=== PATIENT | male | born 1990 | race Caucasian/White ===

== ENCOUNTER 2017-01-08 12:47 | Inpatient (IN) | payer BC, OTHER ==
[~2017-01-08] VITALS: Ht 188 cm; Wt 64.9 kg
[~2017-01-08 12:47] MED LIST: CLON0.1T14 PO; Gabapentin PO; METH-33 PO; TRAZ-144 PO
[2017-01-08 14:05] VITALS: BP 113/61
--- NOTE | 2017-01-08 14:05 | NUR ---
Pre-admission Note: Seen client in intake at this time. He is alert and verbally responsive. Oriented x 4. Appears anxious, with pressured speech. Noted with facial sweating and flushing, gross tremors, restless legs, runny nose and mild generalized pain. Noted with presence of left arm sling. Patient reports that this is due to a should dislocation that happened yesterday. Able to verbalize good understanding of the admission process. Patient noted with disorganized thoughts, jumping from one subject to another. Also noted with auditory hallucinations, answering questions that were not asked. Patient states, "Where can i get a bath tub?" Redirection and re-orientation provided with help. Patient states that he is here to detox from Oxycontin and Xanax. He reports allergies to shellfish. Follows a regular diet at home. 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 VS: Temp 98.1, Pulse 71, RR 20, BP 113/61, PL 2/10. COWS 12/CIWA 16. Dr. Plunkett in to see the patient in the intake office and will enter in admission orders.
--- NOTE | 2017-01-08 14:20 | NUR ---
Admission Note: Patient is a 26 year old male admitted to safely detox from opiates and benzodiazepines under the care of Dr. Seth Plunkett. He is alert and oriented x 4. Noted with auditory hallucinations. Denies S/I or H/I noted. Verbally responsive. Answers questions inappropriately at times. Respirations even and unlabored. No SOB noted. Skin warm and moist to touch. Appears diaphoretic with gross tremors and piloerection noted. Body search done. No contraband was found. Skin check done. No skin breakdown noted. No rashes, no lesions noted. Abdomen soft and non-distended with (+) BS in all 4 quadrants. He reports that his LBM was 1 week ago. Voids independently. Ambulatory ad enoch with steady gait. He reports allergies to shellfish. Has past medical hx of withdrawal-induced seizures 1 year and a half ago. He denies having a PCP at this time. Did not bring in any home medications. Patient states that both his uncles from both sides of his family are heavy drinkers and drug users. Substance Use: 1. Oxycodone - since 16 years old. Snorts 300 to 500 mg daily x 8 months. Last use was 30 hours prior to admission. 2. Xanax - since 16 years old. Snorts 10 to 30 mg daily x 8 months. Last use was was 30 hours prior to admission. Treatment History: 1. Dec 2015 x 21 days - patient unable to recall the name of the rehab 2. [facility] [place] [facility] [place] - 2016 x [facility] days 3. [facility] [place], [place] - x 14 days in 2015 4. [facility] - Apr 2016 x 7 days 5. Apr 2016 x 30 days - patient unable to recall the name of the rehab place at this time Dr. Plunkett aware of patient's arrival in the unit and patient's current level of consciousness. entered in orders for neurochecks q 1 hour and VS q 1 hour. Orders noted and carried out. Placed patient on 1:1 at this time. Bilateral siderails up and padded for fall and seizure
--- NOTE | 2017-01-08 14:39 | NUR ---
Taper intiated/PRN Clonidine 0.1mg PO given: COWS 12/CIWA 16. Modified 5-day Valium and 5-day Subutex taper initiated. Patient kept on 1:1. Safety precautions in place. Patient was administered Clonidine 0.1mg PO for chills, hot flashes, anxiety, agitation. Will monitor for effectiveness.
[2017-01-08 15:00] VITALS: BP 121/87
[2017-01-08 15:37] LABS: *AMPHETAMINE, URINE NEGATIVE (NEGATIVE); *BARBITURATE, URINE NEGATIVE (NEGATIVE); *CANNABINOID, URINE POSITIVE (NEGATIVE); *COCCAINE, URINE NEGATIVE (NEGATIVE); *OPIATE, URINE POSITIVE (NEGATIVE); *PHENCYCLIDINE SCREEN,URINE NEGATIVE (NEGATIVE)
--- NOTE | 2017-01-08 15:39 | NUR ---
Re-assessment: Per patient, PRN Clonidine was effective in reducing sweating, chills, hot flashes, agitation and anxiety.
[2017-01-08 16:00] VITALS: BP 108/50
--- NOTE | 2017-01-08 16:00 | NUR ---
IV access obtained: Informed patient of the procedure and reason. Patient verbalized good understanding. Utilized 23 gauge to patient's left forearm x 1 attempt. Patient tolerated procedure well. Noted with good blood return. Tourniquet released and secured. Flushed adequately per unit protocol. IV site patient and intact. IVF of NS at 125cc/hr started. Addendum: 01/08/17 at 1922 by TIFFANIE PETERSEN LVN Use 22 gauge, not 23.
[2017-01-08 17:00] VITALS: BP_SYST 112; BP_SYST 116; BP_DIAS 54; BP_DIAS 55
[2017-01-08 18:00] VITALS: BP 116/55
--- NOTE | 2017-01-08 18:57 | NUR ---
End of Shift Notes: Patient initiated his 5-day Valium and 5-day Subutex taper as ordered. No adverse reactions noted. VS monitored closely q 1 hour and neurochecks done q 1 hour. No significant changes noted. Continues to be on 1:1 due to altered LOC and DTs due to benzodiazepine. Initial COWS 12/CIWA 16, patient presented with mod to severe hallucinations, chills, anxiety, fatigue, sweating, and mild agitation. Last COWS 02/15 at 1600. IV site to left forearm patent and intact. On continuos IVF of NS at 125cc/hr for hydration. Patient is tolerating well. Compliant with care and treatment. Unable to participate in group and activities. All needs met and attended. Will continue to monitor.
--- NOTE | 2017-01-08 18:59 | NUR ---
New Orders: Orders received from Dr. Plunkett for neurocheck and VS check q 1 hour to be discontinued and changed to q 4 hours. Endorsed to incoming nurse.
[2017-01-08 20:00] VITALS: BP 111/67
--- NOTE | 2017-01-08 20:00 | NUR ---
Start of Shift Pt is a 26 year old male admitted for Opiate/Benzo dependence, placed on Modified Valium and Modified Subutex taper. Pt reported using Oxycodone (nasal) 300-500mg/daily and Xanax (nasal) 10 30mg/daily for the past 8 months. PMH: Withdrawal induced seizures and Left should dislocation (presence of a sling). Pt reports allergies to shellfish, regular diet, fall/seizure precautions and full code. Upon assessment, Presents with anxiety, skin is clammy/flushed, reports tingling sensations in bilateral hands, mild lightheadedness, body aches, tremors visible, denies nausea, denies auditory/visual hallucinations, respirations even/unlabored, denies SOB/chest pain, skin intact. IV to Left forearm 23 gauge, site is intact, no swelling/redness noted. IV NS @ 125cc/hr running for hydration. Pt is on 1:1 due to safety, sitter at bedside. Neurological assessment ordered every 4 hours. Medications due, safety measures in place, call light within reach, side rails up x2, bed locked and in low position. Will continue to monitor.
[2017-01-08 22:57] LABS: BASOPHILS # (AUTO) 0.1 K/uL (0.0-8.0); BASOPHILS % (AUTO) 0.5 % (0.0-2.0); EOSINOPHILS # (AUTO) 0.1 K/uL (0.0-0.7); EOSINOPHILS % (AUTO) 0.8 % (0.0-7.0); HEMATOCRIT 37.5 % (40-50); HEMOGLOBIN 12.6 G/DL (14.0-18.0); LYMPHOCYTES # (AUTO) 2.7 K/UL (0.8-4.8); MEAN CORPUSCULAR HEMOGLOBIN 28.3 UUG (27.0-31.0); MEAN CORPUSCULAR HGB CONC 34 g/dL (32.0-37.0); MEAN CORPUSCULAR VOLUME 84.2 FL (82.0-92.0); MONOCYTES # (AUTO) 0.9 K/UL (0.1-1.30); MONOCYTES % (AUTO) 7.6 % (0.0-11.0); NEUTROPHILS % (AUTO) 68.1 % (38.5-71.5); PLATELET COUNT (AUTO) 275 K/UL (150-450); RED BLOOD CELL COUNT(AUTO) 4.46 MIL/UL (4.7-6.1); WHITE BLOOD COUNT (AUTO) 11.8 K/UL (4.0-11.2)
[2017-01-08 23:16] LABS: ALANINE AMINOTRANSFERASE 18 U/L (16-63); ALKALINE PHOSPHATASE 70 U/L (50-136); ASPARTATE AMINOTRANSFERASE 23 U/L (15-37); BILIRUBIN,TOTAL 0.6 mg/dL (0.2-1.0); CARBON DIOXIDE 26 mmol/L (21-32); CHLORIDE 104 mmol/L (98-107); CREATININE 0.9 mg/dL (0.6-1.3); GLUCOSE 91 mg/dL (74-106); POTASSIUM 3.3 mmol/L (3.5-5.1); TOTAL PROTEIN, SERUM 7.7 g/dL (6.4-8.2); UREA NITROGEN, BLOOD 21 mg/dL (7-18)
--- NOTE | 2017-01-08 23:18 | NUR ---
Valium Administration CIWA 11, pt presents with anxiety, easily distracted with rapid speech, skin flushed, reports tingling sensations, tremors visible, clammy skin. Valium 20mg x1 administered. Pt refused ordered Clonidine 0.1gm x1. Education provided, risks/benefits explained x3. Safety measures in place, sitter at bedside. Will continue to monitor.
--- NOTE | 2017-01-08 23:28 | NUR ---
IVF of NS running at 125cc/hr new bag hung. IV Site to Left forearm, intact, no s/s of swelling/redness noted. Safety measures in place, sitter at bedside. Will continue to monitor.
[2017-01-08 23:29] LABS: ETHANOL < 3 MG/DL (0-0)
[2017-01-09 00:06] LABS: THYROID STIMULATING HORMONE 0.284 mIU/mL (0.358-3.740)
[2017-01-09 00:18] VITALS: BP 100/48
--- NOTE | 2017-01-09 00:18 | NUR ---
Valium Reassessment CIWA 11 decreased to CIWA 8. Safety measures in place, sitter at bedside. Will continue to monitor.
--- NOTE | 2017-01-09 00:49 | NUR ---
Potassium 3.3 supplemented with K DUR 40 MEQ. Safety measures in place, sitter at bedside. Will continue to monitor.
[2017-01-09 04:00] VITALS: BP 107/60
--- NOTE | 2017-01-09 04:00 | NUR ---
Vital Signs BP 107/60, pulse 53, resp 16, SpO2 98% room air, temp 98, no pain. CIWA/COWS and neuro checks deferred due to pt sleeping, to assess while pt is awake as ordered. Pt sleeping, sitter at bedside. Safety measures in place, will continue to monitor.
--- NOTE | 2017-01-09 07:00 | NUR ---
End of Shift Pt is a 26 year old male admitted for Opiate/Benzo dependence, placed on Modified Valium and Modified Subutex taper. Pt reported using Oxycodone (nasal) 300-500mg/daily and Xanax (nasal) 10 30mg/daily for the past 8 months. PMH: Withdrawal induced seizures and Left should dislocation (presence of a sling). Pt reports allergies to shellfish, regular diet, fall/seizure precautions and full code. During shift, Pt presented with anxiety, skin was clammy/flushed, reported tingling sensations in bilateral hands, mild lightheadedness, body aches, tremors visible, denied nausea, denied auditory/visual hallucinations scheduled taper medications administered, along with Valium 20mg x1 for CIWA 11. Upon reassessment, CIWA 8 and COWS 8. Pt refused ordered Clonidine 0.1gm x1. Education provided, risks/benefits explained x3. Potassium 3.3 supplemented with K DUR 40 MEQ. IV to Left forearm 23 gauge, site is intact, no swelling/redness noted. IV NS @ 125cc/hr running for hydration, new bag hung at 2328. Pt is on 1:1 due to safety, sitter at bedside. Neurological assessment ordered every 4 hours. Patient slept for 3 hours, Intake 2600mL, void x4, stool x0. Safety measures in place, call light within reach, side rails up x2, bed locked and in low position. Endorsed to day shift nurse.
--- NOTE | 2017-01-09 07:19 | NUR ---
Start Of Shift Report received. Pt is a 26 year old male admitted for Opiate/Benzo dependence. Pt is full code regular diet on fall and seizure precautions pt is allergic to Shellfish. Pt placed on Modified Valium and Modified Subutex taper. PMH: Withdrawal induced seizures and Left should dislocation. Pt has an IV to Left forearm 23 gauge, site is intact, no swelling/redness noted. IV NS @ 125cc/hr running for hydration. Pt is on 1:1 due to safety, sitter at bedside. Neurological assessment ordered every 4 hours. Encouraged pt to drink fluids to facilitate with detox process. Safety measures in place, call light within reach, side rails up x2, bed locked and in low position. Endorsed to day shift nurse.
[2017-01-09 08:00] VITALS: BP 113/64
[2017-01-09 12:00] VITALS: BP 121/69
[2017-01-09 16:00] VITALS: BP 125/72
--- NOTE | 2017-01-09 19:31 | NUR ---
End Of Shift Pt is a 26 year old male admitted for Opiate/Benzo dependence. Pt is full code regular diet on fall and seizure precautions pt is allergic to Shellfish. Pt placed on Modified Valium and Modified Subutex taper. PMH: Withdrawal induced seizures and Left should dislocation. VS monitored closely q 4 hours. Withdrawal symptoms were closely monitored. Patient encouraged adequate PO fluid intake as tolerated. Patient presented with tremors and anxiety during the day. Last COWS 5 CIWA 5. Pt ate all of his meals. No PRN medications given during the day. Patient encouraged to attend group therapies/sessions to learn new coping skills to recent relapse, patient denies SI/HI. Participated in group and therapy sessions. All needs met and attended.
[2017-01-09 20:00] VITALS: BP 118/77
--- NOTE | 2017-01-09 20:00 | NUR ---
Start of Shift Pt is a 26 year old male admitted for Opiate/Benzo dependence, placed on Modified Valium and Modified Subutex taper. Pt reported using Oxycodone (nasal) 300-500mg/daily and Xanax (nasal) 10 30mg/daily for the past 8 months. PMH: Withdrawal induced seizures and Left should dislocation (presence of a sling). Pt reports allergies to shellfish, regular diet, fall/seizure precautions and full code. Upon assessment, presents with anxiety, skin is flushed, reports body aches, tremors felt upon touch, denies nausea, denies auditory/visual hallucinations, respirations even/unlabored, denies SOB/chest pain, skin intact. IV to Left forearm 23 gauge, site is intact, no swelling/redness noted. Medications due, safety measures in place, call light within reach, side rails up x2, bed locked and in low position. Will continue to monitor.
[2017-01-10] VITALS: BP 122/78
--- NOTE | 2017-01-10 04:00 | NUR ---
Pt refused to wake for 0400 Vital Sign Assessment CIWA/COWS and neuro checks deferred due to pt sleeping, to assess while pt is awake as ordered. Pt sleeping, sitter at bedside. Safety measures in place, will continue to monitor.
[2017-01-10 06:05] LABS: HEPATITIS B SURFACE AG Negative (Negative)
--- NOTE | 2017-01-10 07:00 | NUR ---
End of Shift Pt is a 26 year old male admitted for Opiate/Benzo dependence, placed on Modified Valium and Modified Subutex taper. Pt reported using Oxycodone (nasal) 300-500mg/daily and Xanax (nasal) 10 30mg/daily for the past 8 months. PMH: Withdrawal induced seizures and Left should dislocation (presence of a sling). Pt reports allergies to shellfish, regular diet, fall/seizure precautions and full code. During shift, pt presented with anxiety, skin is flushed, reports body aches, tremors felt upon touch, denies nausea, denies auditory/visual hallucinations scheduled taper medications administered, CIWA 6 and COWS 6. No PRN medications administered during shift. IVF of NS at 125cc/hr new bag hung at 0005 bag completed running, IV site d/c. Pt slept for 2 hours, intake of 1000 ml PO, voids x2 and stool x0. Safety measures in place, call light within reach, side rails up x2, bed locked and in low position. Endorsed to day shift nurse.
[2017-01-10 07:17] LABS: CREATININE 0.8 mg/dL (0.6-1.3); MAGNESIUM 1.9 mg/dL (1.8-2.4); POTASSIUM 4.2 mmol/L (3.5-5.1)
[2017-01-10 07:42] LABS: BASOPHILS # (AUTO) 0.1 K/uL (0.0-8.0); BASOPHILS % (AUTO) 0.7 % (0.0-2.0); EOSINOPHILS # (AUTO) 0.3 K/uL (0.0-0.7); EOSINOPHILS % (AUTO) 2.8 % (0.0-7.0); HEMATOCRIT 34.7 % (40-50); HEMOGLOBIN 11.6 G/DL (14.0-18.0); LYMPHOCYTES # (AUTO) 3.7 K/UL (0.8-4.8); LYMPHOCYTES % (AUTO) 33.7 % (20.5-51.5); MEAN CORPUSCULAR HEMOGLOBIN 28.6 UUG (27.0-31.0); MEAN CORPUSCULAR HGB CONC 33 g/dL (32.0-37.0); MEAN CORPUSCULAR VOLUME 85.9 FL (82.0-92.0); MONOCYTES % (AUTO) 8.9 % (0.0-11.0); NEUTROPHILS % (AUTO) 53.9 % (38.5-71.5); PLATELET COUNT (AUTO) 239 K/UL (150-450); RED BLOOD CELL COUNT(AUTO) 4.04 MIL/UL (4.7-6.1); WHITE BLOOD COUNT (AUTO) 11.1 K/UL (4.0-11.2)
[2017-01-10 08:00] VITALS: BP 103/60
--- NOTE | 2017-01-10 08:00 | NUR ---
START OF SHIFT: RECEIVED PT A/O X 4. HE PRESENTS WITH ANXIOUS MOOD AND IS FIDGETY. HE REPORTS CHILLS,BODY ACHES,ANXIETY,STUFFY NOSE AND STOMACH CRAMPS. COWS 10 CIWA 5. MODIFIED VALIUM AND SUBUTEX TAPER IN PROGRESS TO MANAGE S/S OF W/D. HE STATES THE MEDS ARE EFFECTIVE. ENCOURAGED INCREASED FLUIDS AND PROPER NUTRITION TO PROMOTE WELLNESS. WILL CONTINUE TO MONITOR AND PROVIDE SAFE AND SUPPORTIVE ENVIRONMENT.
[2017-01-10 09:03] LABS: THYROID STIMULATING HORMONE 2.177 mIU/mL (0.358-3.740)
[2017-01-10 12:00] VITALS: BP 107/64
[2017-01-10 16:00] VITALS: BP 108/60
--- NOTE | 2017-01-10 17:09 | NUR ---
Client was prompted by therapist to attend group therapy sessions. Client expressed that he would attend group if he was feeling up to going.
[2017-01-10 18:08] VITALS: BP 108/60
--- NOTE | 2017-01-10 18:55 | NUR ---
END OF SHIFT: PT CONTINUES ON MODIFIED VALIUM/SUBUTEX TAPER. LAST COWS 10 CIWA 5. HE C/O SWEATS,BODY ACHES ANXIETY AND IRRITABILITY.HE STATES THE DETOX MEDS ARE EFFECTIVE. NO PRNS GIVEN THIS SHIFT. HE INTERACTED WITH PEERS AND ATTENDED GROUPS. WILL PASS SHIFT REPORT TO ONCOMING NIGHT NURSE.
--- NOTE | 2017-01-10 19:30 | NUR ---
START OF SHIFT Pt is a 26 y/o male admitted on 01/08/17 for benzo and opiate dependence. Pt was dependent on Oxycodone 300-500 mg daily and Xanax 10-30 mg daily for the past 8 months. Pt is full code, regular diet, allergic to shellfish, and on fall/seizure precautions. Pt reports seizure hx 1.5 years ago r/t withdrawal. Pt reports PMH of shoulder dislocation years ago with current/recent exacerbation and is currently wearing a sling. Pt is on a 5 day Valium and Subutex taper started on 01/09/17, tolerating well. Upon assessment pt presents with cold sweats, restlessness, chills, flushing, body aches, and mild to moderate anxiety. Denies N/V/D. Respirations 18, even and unlabored. Denies chest pain or SOB. Medications due. Safety measures in place. Call light within reach. Will continue to monitor.
[2017-01-10 20:00] VITALS: BP 101/59
--- NOTE | 2017-01-10 21:00 | NUR ---
SCHEDULED CLONIDINE 0.1 MG HELD BP 101/59, to be held per order if BP < 100/70. Safety measures in place. Call light within reach. Will continue to monitor.
[2017-01-11] VITALS: BP 118/69
--- NOTE | 2017-01-11 00:27 | NUR ---
PRN TRAZODONE AND ROBAXIN ADMINISTRATION Pt reports body aches, especially in legs. Pt is restless and awake, requesting sleep aid. Respirations 18, even and unlabored. Safety measures in place. Call light within reach. Will continue to monitor.
--- NOTE | 2017-01-11 01:27 | NUR ---
PRN TRAZODONE AND ROBAXIN REASSESSMENT Pt is laying in bed with eyes closed. Respirations 18, even and unlabored. Safety measures in place. Call light within reach. Will continue to monitor.
[2017-01-11 04:00] VITALS: BP 86/43
--- NOTE | 2017-01-11 04:00 | NUR ---
COW/CIWA DEFERRED Pt is laying in bed with eyes closed, COW/CIWA to be assessed when pt is awake per orders. Respirations 16, even and unlabored. Safety measures in place. Call light within reach. Will continue to monitor.
--- NOTE | 2017-01-11 07:21 | NUR ---
END OF SHIFT Pt is a 44 y/o female admitted on 01/10/17 for benzo, morphine, amphetamine dependence. Pt was dependent on Xanax, morphine, MJ, and Adderall. Pt is full code, regular diet, NKA, and on fall/seizure precautions. Pt reports hx of seizure r/t withdrawal. Pt reports PMH of HTN, chronic back pain, 3 surgeries, anxiety, and depression. Pt is on a 5 day Ativan and Subutex taper started on 01/10/17. Pt has a bruise on left upper arm, present prior to admission. Pt presented with moderate to severe body aches, nausea, anxiety, sweats, photosensitivity, and headache. Pt also complained of pain in legs, back, arms, neck, shoulders. Denied V/D. Scheduled medications and PRNs Zofran, Benadryl, and Robaxin administered, effective in S/S of withdrawal AEB as verbalized by pt and pt slept throughout night. Last COW 5, CIWA 6. Pt slept 7 hours. intake 855 ml, void x 2, stool x 0. Last vitals: BP 126/77, P 64, R 16, 02 98%, T 98.7, PA 8/10. Safety measures in place. Call light within reach. Pts needs have been met. Endorsed to day shift nurse.
[2017-01-11 08:00] VITALS: BP 99/60
--- NOTE | 2017-01-11 08:15 | NUR ---
START OF SHIFT: RECEIVED PT A/O X 4. HE PRESENTS WITH ANXIOUS MOOD AND HE IS RESTLESS AND FIDGETY. HE REPORTS CHILLS,BODY ACHES, COWS 8 CIWA 4. MODIFIED VALIUM AND SUBUTEX TAPER IN PROGRESS TO MANAGE S/S OF W/D. HE STATES THE MEDS ARE EFFECTIVE. ENCOURAGED INCREASED FLUIDS AND PROPER NUTRITION TO PROMOTE WELLNESS. WILL CONTINUE TO MONITOR AND PROVIDE SAFE AND SUPPORTIVE ENVIRONMENT.
[2017-01-11 12:00] VITALS: BP 112/64
[2017-01-11 16:00] VITALS: BP 103/63
--- NOTE | 2017-01-11 19:08 | NUR ---
END OF SHIFT: PT CONTINUES ON MODIFIED VALIUM/SUBUTEX TAPER. LAST COWS 6 CIWA 4. HE C/O ,BODY ACHES ANXIETY AND IRRITABILITY.HE STATES THE DETOX MEDS ARE EFFECTIVE. NO PRNS GIVEN THIS SHIFT. HE INTERACTED WITH PEERS AND ATTENDED GROUPS. WILL PASS SHIFT REPORT TO ONCOMING NIGHT NURSE.
[2017-01-11 20:00] VITALS: BP_SYST 108; BP_DIAS 64; BP_DIAS 74
--- NOTE | 2017-01-11 20:00 | NUR ---
START OF SHIFT NOTE RECEIVED REPORT FROM DAY SHIFT NURSE. PATIENT IS A 26 YEAR OLD MALE ADMITTED FOR OPIATE AND BENZO DEPENDENCE. PATIENT IS ON MODIFIED VALIUM AND SUBUTEX TAPER. PATIENT REPORTS PMH OF WITHDRAWAL INDUCED SEIZURES AND LEFT SHOULDER DISLOCATION (PRESENCE OF SLING). PATIENTS DRUG OF CHOICE ARE OXYCODONE AND XANAX. PATIENT DID NOT REQUIRE ANY PRN MEDICATION. PATIENT STARTED ON TRILEPTAL . LAST COWS 6 AND CIWA 4. RECEIVED PATIENT ALERT AND ORIENTED X 4. RESPIRATION EVEN AND UNLABORED. PATIENT REPORTS ANXIETY, SWEATING, NO N/V, DENIES ANY PAIN AT THIS TIME. PATIENT STATES HE ATTENDED GROUPS, APPETITE IS GOOD AND DRINKING FLUIDS WELL. ON FALL/SEIZURE PRECAUTION. SAFETY MEASURES IN PLACE. CALL LIGHT IN REACH. WILL CONTINUE TO MONITOR
--- NOTE | 2017-01-11 22:10 | NUR ---
PRN TRAZADONE ADMINISTRATION PATIENT REQUESTS FOR SLEEP AID. PRN TRAZADONE GIVEN. WILL MONITOR FOR EFFECTIVENESS
--- NOTE | 2017-01-11 23:30 | NUR ---
PRN TRAZADONE RE-ASSESSMENT PATIENT IN BED ASLEEP AT THIS TIME. ESPIRATION EVEN AND UNLABORED. SAFETY MEASURES IN PLACE. CALL LIGHT IN REACH. WILL CONTINUE TO MONITOR.
--- NOTE | 2017-01-12 | NUR ---
COWS/CIWA/VS PATIENT REFUSED VS. COWS/CIWA DEFERRED. RESPIRATION EVEN AND UNLABORED. RR 15. SAFETY MEASURES IN PLACE. CALL LIGHT IN REACH. WILL CONTINUE TO MONITOR.
--- NOTE | 2017-01-12 04:00 | NUR ---
COWS/CIWA/VS PATIENT REFUSED VS. COWS/CIWA DEFERRED. RESPIRATION EVEN AND UNLABORED. RR 15. SAFETY MEASURES IN PLACE. CALL LIGHT IN REACH. WILL CONTINUE TO MONITOR.
--- NOTE | 2017-01-12 07:12 | NUR ---
END OF SHIFT NOTE PATIENT IS A 44 YEAR OLD FEMALE ADMITTED FOR OPIATE/BENZO DEPENDENCE. PATIENT IS ON 5 DAY SUBUTEX AND 5 DAY ATIVAN TAPER, TOLERATED WELL, NO ADVERSE REACTION. PATIENT REPORTED ANXIETY, RESTLESS LEGS, ABDOMINAL CRAMPING, NAUSEA BUT NO EMESIS, C/O HEADACHE AND BACK PAIN, SWEATING ,STUFFY NOSE AND TREMORS BEGINNING OF SHIFT. PATIENT WAS GIVEN PRN ZOFRAN , ROBAXIN, MOM AND TRAZADONE FOR SLEEP. PATIENT COMPLIANT WITH MEDICATION AND TREATMENT PLAN. SAFETY MEASURES IN PLACE. CALL LIGHT IN REACH. WILL CONTINUE TO MONITOR. SLEPT 7 HOURS. FLUID INTAKE 1,355 ML. VOIDED X 2 . NO BM. LAST COWS 2 AND CIWA 2 . ENDORSED TO INCOMING NURSE, PATIENT DID NOT HAVE BM AND MOM INEFFECTIVE.
--- NOTE | 2017-01-12 07:54 | NUR ---
START OF SHIFT: RECEIVED PT A/O X 4. HE PRESENTS WITH ANXIOUS MOOD AND HE IS RESTLESS AND FIDGETY. HE REPORTS CHILLS,BODY ACHES AND SWEATS.COWS 5 CIWA 4. MODIFIED VALIUM AND SUBUTEX TAPER IN PROGRESS TO MANAGE S/S OF W/D. ENCOURAGED INCREASED FLUIDS TO ASSIST IN FACILITATING DETOX PROCESS. ENCOURAGED GROUP ATTENDANCE TO IMPROVE COPING SKILLS. WILL CONTINUE TO MONITOR AND PROVIDE SAFE AND SUPPORTIVE ENVIRONMENT.
[2017-01-12 08:00] VITALS: BP 115/75
[2017-01-12 12:00] VITALS: BP 105/62
--- NOTE | 2017-01-12 13:45 | NUR ---
Activity Group Note: Client was prompted to attend activity. Client refused.
[2017-01-12 16:00] VITALS: BP 104/55
--- NOTE | 2017-01-12 19:05 | NUR ---
END OF SHIFT: PT CONTINUES ON MODIFIED VALIUM/SUBUTEX TAPER. LAST COWS 4 CIWA 2. HE C/O INTERMITTENT ANXIETY AND MILD BODY ACHES. HE STATES THE DETOX MEDS ARE EFFECTIVE. NO PRNS GIVEN THIS SHIFT. HE INTERACTED WITH PEERS AND ATTENDED GROUPS. WILL PASS SHIFT REPORT TO ONCOMING NIGHT NURSE.
[2017-01-12 20:00] VITALS: BP 110/68
--- NOTE | 2017-01-12 20:00 | NUR ---
START OF SHIFT NOTE RECEIVED REPORT FROM DAY SHIFT NURSE. PATIENT IS A 26 YEAR OLD MALE ADMITTED FOR OPIATE/BENZO DEPENDENCE. CONTINUE ON VALIUM AND SUBUTEX TAPER, TOLERATED WELL AND NO ADVERSE REACTION . PATIENT WITH HISTORY OF SEIZURE. ALLERGIC TO SHELLFISH. PATIENT COMPLIANT WITH MEDICATION AND TREATMENT PLAN. LAST COWS 4 AND CIWA 2. PATIENT DID NOT REQUIRE ANY PRN MEDICATION. RECEIVED PATIENT ALERT AND ORIENTED X 4. RESPIRATION EVEN AND UNLABORED . PATIENT REPORTS ANXIETY, RESTLESS, SWEATING, NO N/V, DENIES ANY PAIN. PATIENT ATTENDED GROUPS. APPETITE IS GOOD AND DRINKING FLUIDS WELL. PATIENT CON FALL/SAFETY MEASURES IN PLACE. CALL LIGHT IN REACH. WILL CONTINUE TO MONITOR.
--- NOTE | 2017-01-12 21:00 | NUR ---
CLONIDINE HELD PATIENT'S CLONIDINE HELD DUE TO HR 60. CLONIDINE WITH ORDER TO HOLD IF HR <70 .
[2017-01-13] VITALS: BP 137/92
--- NOTE | 2017-01-13 01:59 | NUR ---
PRN TRZADONE ADMINSITRION PATIENT REPORTS UNABLE TO SLEEP. PRN TRAZADONE. MONITOR EFFECTIVENESS
[2017-01-13 04:00] VITALS: BP 114/68
--- NOTE | 2017-01-13 04:24 | NUR ---
PRN Zofran ODT: Patient complains of nausea, denies episodes of emesis. PRN Zofran ODT 4mg administered as ordered. Primary nurse to reassess in 30 minutes.
--- NOTE | 2017-01-13 04:54 | NUR ---
PRN ZOFRAN RE-ASSESSMENT PATIENT STATES ZOFRAN HELPFUL AND EFFECTIVE. NAUSEA CEASED. WILL CONTINUE TO MONITOR.
--- NOTE | 2017-01-13 07:00 | NUR ---
PRN TRAZADONE RE-ASSESSMENT TRAZADONE INEFFECTIVE. PATIENT DID NOT SLEEP. WILL CONTINUE TO MONITOR
--- NOTE | 2017-01-13 07:25 | NUR ---
Start of shift note SBAR report rcv'd. Pt was admitted for opiate and benzo dependence. Pt has a PMHx of withdrawal induced seizures and a left shoulder dislocation. Pt is allergic to shellfish, is a full code and on a regular diet. Pt is on a custom valium and subutex taper and tolerating well per report. Pt has been up all night pacing the unit per report. Pt continues to ambulate around the unit. Pt has no complaints at this time. Will refer to psych during rounds. All needs addressed at this time. Will continue to monitor pt.
--- NOTE | 2017-01-13 07:28 | NUR ---
END OF SHIFT NOTE PATIENT IS A 26 YEAR OLD MALE ADMITTED FOR OPIATE/BENZO DEPENDENCE. CONTINUE ON VALIUM AND SUBUTEX TAPER, TOLERATED WELL AND NO ADVERSE REACTION . PATIENT WITH HISTORY OF SEIZURE. ALLERGIC TO SHELLFISH. PATIENT COMPLIANT WITH MEDICATION AND TREATMENT PLAN. PATIENT WAS GIVEN TRAZADONE. PATIENT REMAIN ALERT AND ORIENTED X 4. RESPIRATION EVEN AND UNLABORED . PATIENT REPORTED ANXIETY, RESTLESS, SWEATING, NO N/V, DENIES ANY PAIN. PATIENT ATTENDED GROUPS. APPETITE IS GOOD AND DRINKING FLUIDS WELL. PATIENT ON FALL/SAFETY MEASURES IN PLACE. CALL LIGHT IN REACH. WILL CONTINUE TO MONITOR. SLEPT 0 HOURS. FLUID INTAKE 2,000 ML. VOIDED X 5. BM X 1. LAST COWS 2 AND CIWA 2 . CONTINUE TO REDIRECT PATIENT THROUGHOUT SHIFT. TRAZADONE INEFFECTIVE.
[2017-01-13 08:00] VITALS: BP 107/62
[2017-01-13 12:00] VITALS: BP 107/63
--- NOTE | 2017-01-13 12:20 | NUR ---
Late administration Zyprexa administered late per pt request. Pt 0915 of depralf held d/t 1300 scheduled dose being too close to the time that the pt requested meds. Will continue to monitor pt.
--- NOTE | 2017-01-13 14:01 | NUR ---
Therapist encouraged client to attend group this afternoon so he could meet other clients. Client agreed to attend group.
--- NOTE | 2017-01-13 15:00 | NUR ---
Medications held Medications held d/t sleep. Will continue to monitor pt.
--- NOTE | 2017-01-13 16:00 | NUR ---
COWS/CIWA deferred Pt is sleeping, COWS/CIWA deferred. VS also deferred, all prior VS have been WNL. Will continue to monitor pt.
--- NOTE | 2017-01-13 17:22 | NUR ---
Medication held 1700 depakote held d/t pt sleeping. Will continue to monitor pt. Dr Plunkett aware.
--- NOTE | 2017-01-13 19:07 | NUR ---
End of shift note Pt was admitted for opiate and benzo dependence. Pt is allergic to shellfish, is a full code and on a regular diet. Pt has a PMHx of withdrawal induced seizures and a left shoulder dislocation. Pt is on a custom valium and subutex taper and tolerating well per report. Pt started new medication zyprexa and depakote, given educational materials on new medications. Pt has been sleeping soundly since 1430. Pt respirations are even and unlabored. 1500 and 1700 medications held for sleep. Will endorse SBAR to oncoming shift.
--- NOTE | 2017-01-13 19:10 | NUR ---
Start of shift note Received report from day shift nurse. Pt is a 26 yo male, A+Ox4, presenting to [facility] for Opiate/Benzo dependence. Pt has allergies to shellfish, is on Full code status, and on Regular diet. Pt is is on Fall and Seizure precautions. Pt has HX of Left shoulder dislocation, and seizure. Pt is on 5 day Valium and 5 day Subutex tapers, tolerated well. No s/s of distress noted at this time. Respirations even and unlabored. Will continue to monitor.
[2017-01-13 20:02] VITALS: BP 109/62
[2017-01-14 00:19] VITALS: BP 124/71
[2017-01-14 04:29] VITALS: BP 122/68
--- NOTE | 2017-01-14 07:00 | NUR ---
End of shift note Pt is a 26 yo male, A+Ox4, presenting to [facility] for Opiate/Benzo dependence. Pt has allergies to shellfish, is on Full code status, and on Regular diet. Pt is is on Fall and Seizure precautions. Pt has HX of Left shoulder dislocation, and seizure. Pt is on 5 day Valium and 5 day Subutex tapers, tolerated well. Pt slept for a total of 10 HRS. Last COWS: 3 and Last CIWA: 3 @0400. No s/s of distress noted at this time. Respirations even and unlabored. Will endorse to day shift nurse.
--- NOTE | 2017-01-14 07:05 | NUR ---
Start Of Shift Report received. Pt is a 26 year old male admitted for Opiate/Benzo dependence. Pt is full code regular diet on fall and seizure precautions pt is allergic to Shellfish. Pt continues on Modified Valium and Modified Subutex taper, tolerating well. PMH: Withdrawal induced seizures and Left should dislocation. Encouraged pt to drink fluids to facilitate with detox process. Pt did not receive any PRN medications per shift manager nurse last COWS 3 CIWA 3 @0400. Safety measures in place, call light within reach, side rails up x2, bed locked and in low position. Endorsed to day shift nurse.
[2017-01-14 08:00] VITALS: BP 110/60
[2017-01-14 12:00] VITALS: BP 107/69
[2017-01-14] MEDS ORDERED: IBUP-1955 PO (12:04)
[2017-01-14] MEDS ORDERED: GABA-534 PO (12:04)
[2017-01-14] MEDS ORDERED: CLON0.1T14 PO (12:04)
[2017-01-14] MEDS ORDERED: BACL10TA PO (12:04)
[2017-01-14] MEDS ORDERED: TRAZ-144 PO (12:04)
[2017-01-14] MEDS ORDERED: DICY20TA28 PO (12:04)
[2017-01-14] MEDS ORDERED: OLAN5TAB6 PO (12:04)
[2017-01-14] MEDS ORDERED: DIVA250T4 PO (12:04)
[2017-01-14 16:00] VITALS: BP 112/79
--- NOTE | 2017-01-14 19:34 | NUR ---
End Of Shift Report Given. Pt is a 26 year old male admitted for Opiate/Benzo dependence. Pt is full code regular diet on fall and seizure precautions pt is allergic to Shellfish. Pt continues on Modified Valium and Modified Subutex taper, tolerating well. PMH: Withdrawal induced seizures and Left should dislocation. VS monitored closely q 4 hours. Withdrawal symptoms were closely monitored. Initial CIWA and COWS 5. Patient encouraged adequate PO fluid intake as tolerated. Patient presented with tremors and anxiety during the day. Last CIWA and COWS 3. Per patient, Taper medications have been helping him with his withdrawal symptoms. Pt ate all of his meals. Pt received no PRN medications. Patient encouraged to attend group therapies/sessions to learn new coping skills to recent relapse, patient denies SI/HI. Participated in group and therapy sessions. All needs met and attended
--- NOTE | 2017-01-14 19:35 | NUR ---
Start of shift note Received report from day shift nurse. Pt is a 26 yo male, A+Ox4, presenting to [facility] for Opiate/Benzo dependence. Pt has allergies to shellfish, is on Full code status, and on Regular diet. Pt is is on Fall and Seizure precautions. Pt has HX of Left shoulder dislocation, and seizure. Pt is on 5 day Valium and 5 day Subutex tapers, tolerated well. No s/s of distress noted at this time. Respirations even and unlabored. Will continue to monitor.
[2017-01-14 20:14] VITALS: BP 109/68
[2017-01-15 00:14] VITALS: BP 122/68
[2017-01-15 04:51] VITALS: BP 118/73
--- NOTE | 2017-01-15 06:55 | NUR ---
End of shift note Pt is a 26 yo male, A+Ox4, presenting to [facility] for Opiate/Benzo dependence. Pt has allergies to shellfish, is on Full code status, and on Regular diet. Pt is on Fall and Seizure precautions. Pt has HX of Left shoulder dislocation, and seizure. Pt has completed 5 day Valium and 5 day Subutex tapers, tolerated well, and is due for discharge today. Pt slept for a total of 10 HRS. Last COWS: 2 and Last CIWA: 2 @0400. No s/s of distress noted at this time. Respirations even and unlabored. Will endorse to day shift nurse.
--- NOTE | 2017-01-15 07:45 | NUR ---
START OF SHIFT Rcvd endorsement from ongoing nurse, client is in room, he is a/o X 4 , he presents with anxious mood, flat affect, he is fully ambulatory, he is wearing a sling on his left arm, no swelling noted, he reports mild weakness d/t hx of left shoulder dislocation , he denies any pain or discomfort. He reports anxiety and fatigue. Client is schedule for discharge today. Encourage client to attend group therapy for skills to maintain sober. Encourage client to increase PO fluid intake as tolerated. Client is a 26 yo male, admitted to [facility] for withdrawal from alprazolam and oxycodone. He completed 5 day Valium/ Subutex taper, tolerated well with no ASE. Last CIWA 2/COWS 2 @ 0400. Client had an uneventful night, he slept 10hrs. Client reported allergy to shellfish, full code, regular diet. Client reports a hx of withdrawal-induced seizure. Side rails x 2 up/padded, bed in lowest/lock position. Call light within reach.
[2017-01-15 08:15] VITALS: BP 115/70
--- NOTE | 2017-01-15 12:15 | NUR ---
Discharge note Pt was admitted for withdrawal from alprazolam and oxycodone. Client has a recent CIWA 3 /COWS 2. Client VS are WNL. LBM was 01/15/17. Client denies any SI/HI. Client verbalized his understanding of the discharge instructions. Client has no complaints at this time. Client discharge instructions, prescriptions and all belongings returned to client. All needs addressed at this time. Client ambulated off of unit, client left facility via [facility] for home
== END 2017-01-15 12:15 | disposition home or self-care (01) | DRG 895 ==
LOC: SRC 13:22
PROVIDERS: ADMIT Internal Medicine; ATTEND Internal Medicine
PROC: HZ2ZZZZ Detoxification Services for Substance Abuse Treatment (ICD-10-PCS; principal; 2017-01-08)
PROC: HZ41ZZZ Group Counseling for Substance Abuse Treatment, Behavioral (ICD-10-PCS; 2017-01-09)
PROC: HZ31ZZZ Individual Counseling for Substance Abuse Treatment, Behavioral (ICD-10-PCS; 2017-01-13)
DX: F13.231 Sedative, hypnotic or anxiolytic dependence with withdrawal delirium (principal); F39 Unspecified mood [affective] disorder; I10 Essential (primary) hypertension; F11.23 Opioid dependence with withdrawal; F14.10 Cocaine abuse, uncomplicated; E86.0 Dehydration; F17.220 Nicotine dependence, chewing tobacco, uncomplicated; Z81.8 Family history of other mental and behavioral disorders; D64.9 Anemia, unspecified; E87.6 Hypokalemia; F41.9 Anxiety disorder, unspecified; D72.829 Elevated white blood cell count, unspecified; E07.81 Sick-euthyroid syndrome; S43.005D Unspecified dislocation of left shoulder joint, subsequent encounter; X58.XXXD Exposure to other specified factors, subsequent encounter
CPT/HCPCS: 36415; 70030-TC; 80307; 80346; 80349; 80361; 83735; 84443; 85025; 86580; 86592; 86705; 86803; 87340; 87806; G0480; J3490; J7030; Q0162

== ENCOUNTER 2017-02-08 20:01 | Inpatient (IN) | payer BC, OTHER ==
[~2017-02-08] VITALS: Ht 188 cm; Wt 65.8 kg
[~2017-02-08 20:01] MED LIST changes: +BACL10TA PO; +DICY20TA28 PO; +DIVA250T4 PO; +GABA-534 PO; -Gabapentin PO; +IBUP-1955 PO; -METH-33 PO; +OLAN5TAB6 PO
[2017-02-08 20:35] VITALS: BP 111/67
--- NOTE | 2017-02-08 20:35 | NUR ---
INTAKE ASSESSMENT VS BP-111/67 T-98.0 P-64 R-18 PA-0/10. SpO2 98% IN RA. PATIENT'S SPEECH IS CLEAR AND ANSWER QUESTIONS APPROPRIATELY.+ ALERT AND ORIENTED X 4. PATIENT IS AMBULATORY AND GAIT IS STEADY. PATIENT STATES HE'S ALLERGIC TO SHELLFISH. HISTORY OF SEIZURE , LAST ONE WAS 2 WEEKS AGO, HE WAS IN ER , HE WAS MONITORED FOR AN HOUR AND WAS RELEASED. PATIENT STATES HE'S HERE FOR OXYCODONE AND XANAX. WILL CONTINUE ADMISSION ON 3RD FLOOR.
--- NOTE | 2017-02-08 20:47 | NUR ---
ADMISSION NOTE PATIENT IS A 26 YEAR OLD MALE WHO PRESENTS TO THE [facility] FOR SUPERVISED WITHDRAWAL FROM BENZO/OPIATE DEPENDENCE. HEIGHT IS 6'2 AND WEIGHT IS 145 LBS. BODY CHECK DONE , PATIENT NOTED WITH FADING BRUISE ON LEFT SHOULDER, PER PATIENT DUE TO FALL WHEN HE HAD SEIZURE 2 WEEKS AGO, HE WAS IN ER, HE WAS MONITORED FOR AN HOUR AND WAS RELEASED. LUNGS CLEAR AND ABDOMEN SOFT AND NON-DISTENDED. BOWEL SOUNDS ACTIVE ON ALL QUADRANT. LAST BOWEL MOVEMENT TODAY. NO DIFFICULTY WHILE URINATING. PATIENT REQUESTED TO BE FULL CODE AND ON REGULAR DIET. PATIENT DOES NOT HAVE PCP. PATIENT REPORTS PMH OF SEIZURE, LAST ONE WAS 2 WEEKS AGO AND BONE GRAFT ON LEFT ANKLE. 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 HIS FAMILY IS HIS SUPPORT SYSTEM. PATIENT WAS IN [facility]. LAST ONE BEING IN THE [facility] ON JAN [id number]. PATIENT'S DRUG OF CHOICE ARE: 1.OXYCODONE (SNIFFING)-STARTED USING AT AGE 19. TAKES 10-20 TABS OF 30 MG DAILY SINCE 01/15/17. LAST USE 5 TABS OF 30 MG PRIOR TO ADMISSION 2.XANAX PO-STARTED USING AT AGE 16. TAKES 10-16 MG DAILY SINCE 01/15/17. LAST USE WAS 6 MG ON 02/04/17. 3.MARIJUANA (SMOKING)-STARTED USING AT AGE 14. SMOKES 1 GRAM OCCASIONALLY. LAST USE WAS 1 GRAM PRIOR TO ADMISSION. PATIENT SMOKES CIGARETTE. PATIENT DENIES SI/HI. PATIENT STATES HE RELAPSED AFTER DISCHARGING FROM OUR UNIT. PER PATIENT 30 DAYS IS HIS LONGEST PERIOD SOBRIETY WHEN HE WAS 21 YEARS OLD. PATIENT REPORTS ANXIETY, NOTED SWEATING AND TREMORS, RESTLESS AND GENERALIZED MUSCLE ACHES. COWS 9 AND CIWA 9. PATIENT DOES NOT HAVE HOME MEDS. REFUSED FLU AND PNEUMONIA VACCINE DUE TO FEAR OF SIDE EFFECTS. EDUCATE PATIENT . PATIENT WAS ORIENTED TO SURROUNDINGS AND HOW TO USE CALL LIGHT. PATIENT WAS PLACED ON FALL/SEIZURE HISTORY. SAFETY MEASURES IN PLACE. CALL LIGHT INT EACH. WILL CONTINUE TO MONITOR.
[2017-02-08] MEDS ORDERED: DICYCLOMINE HCL 20 MG TABLET PO PRN (21:30)
[2017-02-08] MEDS ORDERED: DIAZEPAM 10 MG TABLET PO PRN ×2 (21:30)
[2017-02-08] MEDS ORDERED: LORAZEPAM 2 MG/1 ML VIAL IM PRN (21:30)
[2017-02-08] MEDS ORDERED: ONDANSETRON 4 MG/2 ML VIAL IM PRN (21:30)
[2017-02-08] MEDS ORDERED: diphenhydrAMINE 50 MG CAPSULE PO PRN (21:30)
[2017-02-08] MEDS ORDERED: LOPERAMIDE HCL 2 MG CAPSULE PO PRN ×2 (21:30)
[2017-02-08] MEDS ORDERED: BUPRENORPHINE HCL 2 MG TAB.SUBL SL PRN (21:30)
[2017-02-08] MEDS ORDERED: DIAZEPAM 5 MG TABLET PO PRN (21:30)
[2017-02-08] MEDS ORDERED: IBUPROFEN 600 MG TABLET PO PRN (21:30)
[2017-02-08] MEDS ORDERED: ACETAMINOPHEN 325 MG TABLET PO PRN (21:30)
[2017-02-08] MEDS ORDERED: MIRALAX 17 GM POWD.PACK PO PRN (21:30)
[2017-02-08] MEDS ORDERED: ONDANSETRON ODT 4 MG TAB.RAPDIS SL PRN (21:30)
[2017-02-08] MEDS ORDERED: MAG HYDROX/AL HYDROX/SIMETH 30 ML LIQUID UDC PO PRN (21:30)
[2017-02-08 22:04] LABS: *AMPHETAMINE, URINE NEGATIVE (NEGATIVE); *BARBITURATE, URINE NEGATIVE (NEGATIVE); *CANNABINOID, URINE POSITIVE (NEGATIVE); *COCCAINE, URINE NEGATIVE (NEGATIVE); *OPIATE, URINE POSITIVE (NEGATIVE); *PHENCYCLIDINE SCREEN,URINE NEGATIVE (NEGATIVE)
[2017-02-08] MEDS: METHOCARBAMOL 750 MG TABLET PO PRN (22:16)
--- NOTE | 2017-02-08 22:16 | NUR ---
ONE TIME VALIUM AND PRN ROBAXIN ADMINISTRATION PATIENT REPORTS ANXIETY, SWEATING , NOTED RESTLESS, FLUSHED , FINE TREMORS AND C/O GENERALIZED MUSCLE ACHES 10/17. GULSHAN 9. WILL MONITOR FOR EFFECTIVENESS
[2017-02-08 22:19] LABS: BASOPHILS # (AUTO) 0.1 K/uL (0.0-8.0); BASOPHILS % (AUTO) 0.5 % (0.0-2.0); EOSINOPHILS # (AUTO) 0.1 K/uL (0.0-0.7); EOSINOPHILS % (AUTO) 0.9 % (0.0-7.0); HEMATOCRIT 37.5 % (40-50); HEMOGLOBIN 12.7 G/DL (14.0-18.0); LYMPHOCYTES # (AUTO) 3.6 K/UL (0.8-4.8); LYMPHOCYTES % (AUTO) 24.8 % (20.5-51.5); MEAN CORPUSCULAR HEMOGLOBIN 28.5 UUG (27.0-31.0); MEAN CORPUSCULAR HGB CONC 34 g/dL (32.0-37.0); MONOCYTES # (AUTO) 1.2 K/UL (0.1-1.30); MONOCYTES % (AUTO) 8.5 % (0.0-11.0); NEUTROPHILS # (AUTO) 9.6 K/UL (1.8-8.9); NEUTROPHILS % (AUTO) 65.3 % (38.5-71.5); PLATELET COUNT (AUTO) 276 K/UL (150-450); RED BLOOD CELL COUNT(AUTO) 4.47 MIL/UL (4.7-6.1); WHITE BLOOD COUNT (AUTO) 14.6 K/UL (4.0-11.2)
[2017-02-08 22:29] LABS: ETHANOL < 3 MG/DL (0-0)
[2017-02-08] MEDS ORDERED: DIAZEPAM 10 MG TABLET ONE (22:29)
[2017-02-08] MEDS ORDERED: METHOCARBAMOL 750 MG TABLET ONE (22:30)
[2017-02-08 22:31] LABS: ALANINE AMINOTRANSFERASE 22 U/L (16-63); ALKALINE PHOSPHATASE 72 U/L (50-136); ASPARTATE AMINOTRANSFERASE 37 U/L (15-37); BILIRUBIN,TOTAL 0.4 mg/dL (0.2-1.0); CARBON DIOXIDE 30 mmol/L (21-32); CHLORIDE 104 mmol/L (98-107); CREATININE 1.2 mg/dL (0.6-1.3); MAGNESIUM 2.2 mg/dL (1.8-2.4); POTASSIUM 3.5 mmol/L (3.5-5.1); TOTAL PROTEIN, SERUM 7.8 g/dL (6.4-8.2); UREA NITROGEN, BLOOD 25 mg/dL (7-18)
[2017-02-08 22:36] LABS: GLUCOSE 43 mg/dL (74-106)
[2017-02-08] MEDS ORDERED: DIAZEPAM 10 MG TABLET PO ONE (22:45)
--- NOTE | 2017-02-08 23:16 | NUR ---
PRN VALIUM AND ROBAXIN RE-ASSESSMENT PATIENT IN HIS ROOM, RESTING COMFORTABLY AND WATCHING TV. PATIENT STATES HE FEELS MUCH BETTER, NO PAIN AT THIS TIME. VALIUM AND ROBAXIN HELPFUL AND EFFECTIVE. CIWA IS NOW 4. WILL CONTINUE TO MONITOR
[2017-02-09] VITALS (7 sets, daily range): BP systolic 95–117; BP diastolic 54–61
--- NOTE | 2017-02-09 06:03 | NUR ---
ADDITIONAL NOTE PER PATIENT HE HAD SEIZURE 2 WEEKS AGO, HE WAS [facility] THE [facility], HE TOOK A BOTTLE OF SOMA FOR UNKNOWN DOSAGE , NOT HIS OWN AND FINISHES IT FOR 2 DAYS AND THEN THE NEXT DAY HE HAD SEIZURE.
--- NOTE | 2017-02-09 07:18 | NUR ---
END OF SHIFT NOTE PATIENT IS A 26 YEAR OLD MALE NEWLY ADMITTED FOR BENZO/OPIATE DEPENDENCE. PATIENT SLEPT 3 HOURS. FLUID INTAKE 1,096. VOIDED X 1. NO BM . PATIENT WAS GIVEN ONE TIME VALIUM AND PRN ROBAXIN, EFFECTIVE. ON FALL/SEIZURE PRECAUTION. SAFETY MEASURES IN PLACE. CALL LIGHT IN REACH. WILL CONTINUE TO MONITOR. PATIENT'S BLOOD GLUCOSE LEVEL WAS 43, PATIENT WAS GIVEN APPLE JUICE AND ATE 1/2 OF SANDWICH. ENDORSED TO DAY SHIFT NURSE Addendum: 02/09/17 at 0734 by IBETH CLAY LVN LORRAINE GAFFNEY 4.
[2017-02-09] MEDS: DIAZEPAM 10 MG TABLET PO SCH ×4 (08:16→22:07)
[2017-02-09] MEDS: GABAPENTIN 300 MG CAPSULE PO SCH ×3 (08:16→22:08)
[2017-02-09] MEDS: BUPRENORPHINE HCL 2 MG TAB.SUBL SL SCH ×4 (08:19→22:08)
[2017-02-09] MEDS ORDERED: TUBERCULIN,PURIF.PROT.DERIV. 5 TU/0.1 ML TEST ID ONE (09:00)
--- NOTE | 2017-02-09 10:00 | NUR ---
START OF SHIFT Received report from assistant shift supervisor nurse. Patient is 26 year old male admitted for medically supervised withdrawal from benzo and opiates. Patient is full code with allergy to shellfish. Patient is alert and oriented X4. On 5-Day Valium and 5-day Subutex taper. Refused his subutex dose this AM, notified. Most recent CIWA: 8 and COWS: 12. Denies SOB, chest pain. Vitals signs: WNL. Reports mild anxiety, mild tremors, stomach cramps, body aches, anxiety, pupil dilation, tactile disturbances, and piloerection. Denies sweating, nausea, vomiting, auditory and visual hallucinations. Took AM meds except routine subutex. Tolerating his meals at this time. Patient was encouraged to attend group meetings today. Will continue to monitor patient.
--- NOTE | 2017-02-09 10:46 | NUR ---
Therapist prompted client about group times. Client stated he will attend all groups today.
[2017-02-09] MEDS: METHOCARBAMOL 750 MG TABLET PO PRN (13:25)
--- NOTE | 2017-02-09 14:46 | NUR ---
Therapist prompted client to attend group, client agreed to attend.
--- NOTE | 2017-02-09 18:42 | NUR ---
END OF SHIFT Patient is 27 year old male admitted for medically supervised withdrawal from alprazolam and oxycodone. Patient is full code with allergy to shellfish. Patient is alert and oriented X4. On 5-Day Valium and 5-day Subutex taper. Refused his first scheduled dose of subutex at 9AM with COWS of 12, MD aware. Refused PPD skin test, MD aware. Patient took his scheduled subutex at 1PM with COWS 14, reports increased anxiety, sweating, tremors, dilated pupil, restlessness and goosebumps noted. Most recent CIWA: 6 and COWS: 10 at 16:00pm. Patient reports anxiety, tremors, goosebumps, sweating, generalized bodyaches and dilated pupil. No PRN given. Patient reports that he was taking depakote, zyprexa, gabapentin and trazodone while in this facility during his previous admission but did not take any of these medications after his discharge. He further states that he was taking these meds for his manic behaviors. Patient attends groups meetings. Patient tolerating meals without n/v. night monitordate night caregiver will continue to monitor patient. Addendum: 02/09/17 at 1901 by JOSE FERNANDEZ RN aware about patient's last blood glucose lab (43) and was given juice from previous shift. Patient has been asymptomatic throughout the shift eating his meals and snacks in between meals.
--- NOTE | 2017-02-09 20:00 | NUR ---
Start of Shift Notes Received 26 year old male admitted 02/08/2017 for medically supervised withdrawal from benzo and opiates. Patient is full code with allergy to shellfish and on regular diet. Patient is alert and oriented X4. On 5-Day Valium and 5-day Subutex taper. During the rounds at 2000, Vitals signs: WNL. Reports moderate anxiety. Px is fidgety and hyper. Bed in low position and locked, side rails up x 2, call chan within reach. We'll continue to monitor patient.
[2017-02-10] VITALS: BP 116/72
[2017-02-10 04:00] VITALS: BP 113/72
--- NOTE | 2017-02-10 04:00 | NUR ---
COWS and CIWA deferred COWS and CIWA deferred due to the px is sleeping, to be assess if the px is awake per doctor's order. We'll continue to monitor.
--- NOTE | 2017-02-10 07:12 | NUR ---
End of Shift Notes 26 year old male admitted 02/08/2017 for medically supervised withdrawal from benzo and opiates. Patient is full code with allergy to shellfish and on regular diet. Patient is alert and oriented X4. On 5-Day Valium and 5-day Subutex taper. During the shift, Vitals signs: WNL. Reports moderate anxiety. Px is fidgety and hyper but no complaints made. Oral intake of 2 L, voded 4x, No BM. Slept for 3.5 hrs. Last COWS 4, CIWA 5. Bed in low position and locked, side rails up x 2, call chan within reach. We'll continue to monitor patient.
--- NOTE | 2017-02-10 07:45 | NUR ---
START OF SHIFT OF SHIFT Rcvd endorsement from ongoing nurse, client is in room, he is a/o x 4, he presents with anxious mood, flat affect, and flushed face. He reports decreased appetite, fatigue, restless legs, body aches, and abdominal cramps.He denies any N/V/D. He denies any SI/HI. Encouraged client to attend group therapy for skills to maintain sober. Encouraged client to increase PO fluid as tolerated to facilitate detox. Client is a 26 y/o male, admitted to [facility] for withdrawal from alprazolam and oxycodone. He is on 5 day Diazepam taper, 5 day Subutex taper (day 2), tolerating well. Last CIWA 5/ COWS 4 @ 2400. Client had an uneventful night. He slept 3.5 hrs. He reports a hx of withdrawal-induced seizures, Client reports allergy to Shellfish, he is full code, regular diet (except shellfish). Side rails x 2 up/padded for seizure precautions. Call light within reach.
[2017-02-10] MEDS: DIAZEPAM 10 MG TABLET PO SCH ×3 (08:05→21:02)
[2017-02-10] MEDS: GABAPENTIN 300 MG CAPSULE PO SCH ×3 (08:05→21:02)
[2017-02-10] MEDS: BUPRENORPHINE HCL 2 MG TAB.SUBL SL SCH ×3 (08:05→21:03)
[2017-02-10 08:07] VITALS: BP 110/69
[2017-02-10] MEDS ORDERED: QUETIAPINE FUMARATE 25 MG TABLET PO PRN (09:00)
--- NOTE | 2017-02-10 11:07 | NUR ---
PRN Seroquel 25mg PO administered for agitation, client pacing in his room, difficult to stay still, flushed face. Call light within reach. Will continue to monitor.
--- NOTE | 2017-02-10 12:07 | NUR ---
Reassessment PRN Seroquel 25mg PO effective, client appears less agitated, he is able to join his peers at the patio.
[2017-02-10 12:42] VITALS: BP 105/66
[2017-02-10 14:06] LABS: HEPATITIS B SURFACE AG Negative (Negative)
[2017-02-10] MEDS ORDERED: DIAZEPAM 10 MG TABLET PO PRN ×2 (14:45)
[2017-02-10] MEDS ORDERED: DIAZEPAM 5 MG TABLET PO PRN (14:45)
--- NOTE | 2017-02-10 16:49 | NUR ---
Therapist prompted client to attend group therapy. Client stated that he would attend.
[2017-02-10 16:55] VITALS: BP 97/53
--- NOTE | 2017-02-10 19:15 | NUR ---
START OF SHIFT Received 26 year old male patient admitted on 02/08/17 for Oxycodone, Xanax and Marijuana dependency. Pt is full code with allergy to shellfish. He reports a PMHx of seizure 2 weeks ago related to withdrawal and bone graft on left ankle. He reports using Oxycodone 10-20 (30 mg tabs) daily for 3-4 weeks. Last dose was 5 (30mg) on 02/08/17. Xanax 10-16 mg daily for 3 -4 weeks. Last dose was 6 mg on 02/04/17. And Marijuana 1 gram occasionally. Last dose was 1 gram on 02/08/17. Pt is currently receiving 5 day Valium and 5 day Subutex taper started on 02/09/17 and is tolerating well. Per endorsement, pt received PRN Seroquel. Pt is alert and oriented x4, breathing is even and unlabored. Safety measures in place. Will monitor.
--- NOTE | 2017-02-10 19:15 | NUR ---
END OF SHIFT Client is a 26 y/o male, a/ox4, he continues to present with anxious mood, flat affect. Carlos was admitted to [facility] for withdrawal from alprazolam and oxycodone. He is on 5 day Diazepam taper, 5 day Subutex taper (day 2), tolerating well. Last CIWA 5/ COWS 4 @ 1600. PRN Seroquel 25mg PO administered for agitation, client pacing in his room, difficult to stay still, flushed face, noted effective. Client is compliant with group therapy. Adequate PO fluid intake 3250mL, void x 4, stool x 1. He reports a hx of withdrawal-induced seizures, Client reports allergy to Shellfish, he is full code, regular diet (except shellfish). Side rails x 2 up/padded for seizure precautions. Call light within reach.
[2017-02-10 20:00] VITALS: BP 115/60
--- NOTE | 2017-02-10 20:45 | NUR ---
BEHAVIOR NOTE Per FIRE SUPPORT SPECIALIST, pt was seen knocking on shower door while pt in 308 was taking a shower. Pt in 308 became agitated. FIRE SUPPORT SPECIALIST radio time sales supervisor explained unit protocols regarding his behavior. Pt currently on room restriction. Pt verbalizes understanding. Charge nurse and administrative staff made aware.
[2017-02-10] MEDS: TRAZODONE 50 MG TABLET PO PRN (21:02)
--- NOTE | 2017-02-10 21:02 | NUR ---
PRN TRAZODONE Pt complains of inability to sleep. PRN Trazodone administered as ordered. Safety measures in place. Will monitor.
--- NOTE | 2017-02-10 22:02 | NUR ---
PRN TRAZODONE REASSESSMENT PRN medication ineffective. Pt is still awake, pt appears drowsy and reports he is ready to sleep. Breathing even and unlabored. Safety measures in place. Will monitor.
[2017-02-11] VITALS: BP 110/70
--- NOTE | 2017-02-11 | NUR ---
COWS/CIWA DEFERRED Pt is lying in bed with eyes closed noted to be asleep. Respirations 16, breathing even and unlabored. Safety measures in place. Will monitor.
--- NOTE | 2017-02-11 04:00 | NUR ---
VITALS REFUSED, COWS/CIWA DEFERRED 0400 vitals refused. COWS and CIWA deferred d/t pt is lying in bed with eyes closed noted to be asleep. Breathing is even and unlabored. Safety measures in place. Will monitor.
--- NOTE | 2017-02-11 07:01 | NUR ---
END OF SHIFT Pt is a 26 year old male patient admitted on 02/08/17 for Oxycodone, Xanax and Marijuana dependency. Pt is full code with allergy to shellfish. Pt continues on a 5 day Valium and 5 day Subutex taper started on 02/09/17. He is currently on day3/5 and is tolerating well. At 2101 he received PRN Trazodone. He continues on RR for behavior. He slept a total of 7 hrs, Intake:850mL, Void:x2, BM:0, COWS:6, CIWA:6 prior to administration of 2100 medications. Pt remains alert and oriented x4, breathing is even and unlabored. Safety measures in place. Will endorse to AM shift.
--- NOTE | 2017-02-11 07:30 | NUR ---
START OF SHIFT Pt is a 26 yr old male, AA&Ox4. Pt was admitted on 02/08/17 for Opiate/Benzo Dependence and is on 5 day Valium and 5 day Subutex taper as ordered. Medication eric well. Received report from night patrol inspector nurse. Pt received Trazodone PRN during the night fopr sleept. Pt slept for 7 hrs. Last COWS score was 6 and CIWA score was 6 at 2200. Pt is currently c/o mild anxiety but is able to cope with anxiety level. Skin is intact, warm and dry tot ouch. No tremors seen or felt. Pt denies any n/v. Pt is on fall and seizure precautions. Bed kept in low position and locked with side rails up x2. Call light is within reach. Will continue to monitor.
[2017-02-11 08:00] VITALS: BP 103/58
[2017-02-11] MEDS ORDERED: BUPRENORPHINE HCL 2 MG TAB.SUBL SL SCH (09:00)
[2017-02-11] MEDS: DIAZEPAM 5 MG TABLET PO SCH ×3 (09:20→16:47)
[2017-02-11] MEDS: GABAPENTIN 300 MG CAPSULE PO SCH ×3 (09:21→21:05)
[2017-02-11 12:00] VITALS: BP 108/64
[2017-02-11] MEDS: BUPRENORPHINE HCL 2 MG TAB.SUBL SL SCH ×2 (14:30→21:05)
[2017-02-11 16:00] VITALS: BP 115/64
--- NOTE | 2017-02-11 18:58 | NUR ---
END OF SHIFT Pt is a 26 yr old male, AA&Ox4. Pt was admitted on 02/08/17 for Opiate/Benzo Dependence and is on 5 day Valium and 5 day Subutex taper as ordered. Medication eric well. Pt has been cooperative with medication regimen and plan of care. Pt attended group sessions. Last COWS score was 1 and CIWA score was 1 at 1600. Pt c/o mild anxiety but is able to cope with anxiety level. Skin is intact, warm and dry to touch. No tremors seen or felt. Pt denies any n/v. Pt denies any pain or discomfort. Pt is on fall and seizure precautions. Bed kept in low position and locked with side rails up x2. Call light is within reach.
[2017-02-11 20:00] VITALS: BP 105/61
--- NOTE | 2017-02-11 20:00 | NUR ---
START OF SHIFT NOTE RECEIVED REPORT FROM DAY SHIFT NURSE. PATIENT IS A 26 YEAR OLD MALE ADMITTED FOR OPIATE/BENZO DEPENDENCE. PATIENT IS ON 3RD DAY OF HIS 5 DAY VALIUM AND 5 DAY SUBUTEX TAPER. PATIENT IS ALLERGIC TO SHELLFISH. PATIENT REPORTS PMH OF WITHDRAWAL INDUCED SEIZURE (LAST ONE WAS 2 WEEKS AGO) AND BONE GRAFT ON LEFT ANKLE. PATIENT DID NOT REQUIRE ANY PRN MEDICATION . PATIENT'S WBC ELEVATED , THROAT CULTURE AND INFLUENZA DONE, RESULT PENDING. NEW ORDER FOR BLOOD DRAW IN AM. LAST COWS 1 AND CIWA 1. RECEIVED PATIENT ALERT AND ORIENTED X 4. RESPIRATION EVEN AND UNLABORED. REPORTS ANXIETY AND SWEATING. DENIES ANY PAIN AT THIS TIME. NO N/V. PATIENT ATTENDS GROUPS. EATING AND DRINKING FLUIDS WELL. PATIENT ON FALL/SEIZURE PRECAUTION. SAFETY MEASURES IN PLACE. CALL LIGHT IN REACH. WILL CONTINUE TO MONITOR.
--- NOTE | 2017-02-11 20:07 | NUR ---
PRN MOM ADMINISTRATION PATIENT REPORTS CONSTIPATED. PRN MOM GIVEN AND ENCOURAGE FLUIDS. WILL MONITOR FOR EFFECTIVENESS Addendum: 02/12/17 at 0052 by IBETH CLAY LVN ERROR": THIS CHARTING IS FOR ANOTHER PATIENT
[2017-02-11] MEDS ORDERED: DIAZEPAM 10 MG TABLET PO SCH (21:00)
[2017-02-12] VITALS: BP 103/65
[2017-02-12] MEDS: TRAZODONE 50 MG TABLET PO PRN (00:21)
--- NOTE | 2017-02-12 00:21 | NUR ---
PRN TRAZADONE RE-ASSESSMENT PATIENT REQUESTS FOR SLEEP AID. PRN TRAZADONE GIVEN. WILL MONITOR FOR EFFECTIVENESS
--- NOTE | 2017-02-12 01:30 | NUR ---
PRN TRAZADONE RE-ASSESSMENT PATIENT ASLEEP AT THIS TIME. RESPIRATION EVEN AND UNLABORED. SAFETY MEASURES IN PLACE. CALL LIGHT IN REACH. WILL CONTINUE TO MONITOR
--- NOTE | 2017-02-12 04:00 | NUR ---
COWS/CIWA DEFERRED PATIENT SLEEPING. PATIENT REFUSED VS. RESPIRATION EVEN AND UNLABORED. SAFETY MEASURES IN PLACE. CALL LIGHT IN REACH. WILL CONTINUE TO MONITOR
--- NOTE | 2017-02-12 06:59 | NUR ---
END OF SHIFT NOTE PATIENT IS A 26 YEAR OLD MALE ADMITTED FOR OPIATE/BENZO DEPENDENCE. CONTINUE ON VALIUM AND SUBUTEX TAPER, TOLERATED WELL, NO ADVERSE REACTION . PATIENT'S WBC ELEVATED , THROAT CULTURE DONE AND RESULT STILL PENDING . INFLUENZA DONE AND RESULTS IS NOT DETECTED AND PRESUMPTIVE NEGATIVE. BLOOD DRAW IN AM. PATIENT PATIENT REMAIN ALERT AND ORIENTED X 4. RESPIRATION EVEN AND UNLABORED. PATIENT STATES MEDICATION ARE EFFECTIVE IN CONTROLLING HIS WITHDRAWAL SYMPTOMS. PATIENT WAS GIVEN PRN TRAZADONE FOR SLEEP. PATIENT ATTENDS GROUPS. EATING AND DRINKING FLUIDS WELL. PATIENT ON FALL/SEIZURE PRECAUTION. SAFETY MEASURES IN PLACE. CALL LIGHT IN REACH. WILL CONTINUE TO MONITOR. SLEPT 4 HOURS. FLUID INTAKE 1,000 ML. VOIDED X 3 . BM X 1. LAST COWS 2 AND CIWA 1.
[2017-02-12 07:25] LABS: BASOPHILS # (AUTO) 0.1 K/uL (0.0-8.0); EOSINOPHILS % (AUTO) 6.4 % (0.0-7.0); MEAN CORPUSCULAR HGB CONC 34 g/dL (32.5-36.3); RED BLOOD CELL COUNT(AUTO) 4.71 MIL/uL (4.06-5.63)
[2017-02-12 07:30] LABS: POTASSIUM 4.5 mmol/L (3.5-5.1)
[2017-02-12 07:31] LABS: MAGNESIUM 2.3 mg/dL (1.8-2.4)
[2017-02-12 07:34] LABS: EOSINOPHILS # (AUTO) 0.6 K/uL (0.0-0.7); HEMATOCRIT 39.7 % (36.7-47.1); HEMOGLOBIN 13.7 g/dL (12.5-16.3); LYMPHOCYTES # (AUTO) 4.7 K/uL (20.0-40.0); MEAN CORPUSCULAR VOLUME 84.2 fL (73.0-96.2); MONOCYTES # (AUTO) 0.8 K/uL (2.0-10.0); MONOCYTES % (AUTO) 7.8 % (0.0-11.0); NEUTROPHILS # (AUTO) 3.9 K/uL (1.8-8.9); NEUTROPHILS % (AUTO) 38.8 % (38.5-71.5); PLATELET COUNT (AUTO) 303 K/uL (152-348)
[2017-02-12 07:35] LABS: WHITE BLOOD COUNT (AUTO) 10.2 K/uL (3.6-10.2)
--- NOTE | 2017-02-12 07:40 | NUR ---
START OF SHIFT Pt is a 26 yr old male, AA&Ox4. Pt was admitted on 02/08/17 for Opiate/Benzo Dependence and is on 5 day Valium and 5 day Subutex taper as ordered. Medication eric well. Received report from city treasurer nurse. Pt received Trazodone PRN during the night for sleep. Pt slept for 4 hrs. Last COWS score was 1 and CIWA score was 2 at 0000. Pt throat culture is pending. Lab were drawn and WNL. Pt denies any anxiety or agitation at this time. Skin is intact, warm and dry tot ouch. No tremors seen or felt. Pt denies any n/v. Pt is on fall and seizure precautions. Bed kept in low position and locked with side rails up x2. Call light is within reach. Will continue to monitor.
[2017-02-12 08:00] VITALS: BP 110/66
[2017-02-12] MEDS: GABAPENTIN 300 MG CAPSULE PO SCH ×3 (08:32→21:50)
[2017-02-12] MEDS: DIAZEPAM 5 MG TABLET PO SCH ×3 (08:33→21:50)
[2017-02-12] MEDS: BUPRENORPHINE HCL 2 MG TAB.SUBL SL SCH ×3 (08:34→21:51)
[2017-02-12 12:00] VITALS: BP 110/69
[2017-02-12] MEDS: CLONIDINE HCL 0.1 MG TABLET PO PRN (12:20)
--- NOTE | 2017-02-12 12:20 | NUR ---
PRN GIVEN Pt was c/o increase anxiety and cold/hot chills. Clonidine 0.1mg PO PRN was given as ordered. Medication eric well. Encouraged increase fluid intake. Will continue to monitor
--- NOTE | 2017-02-12 13:20 | NUR ---
PRN RE-ASSESSMENT Clonidine 0.1mg PRN was effective. Pt denies any anxiety or chills. Encouraged increase fluid intake. Will continue to monitor.
[2017-02-12 16:00] VITALS: BP 107/60
--- NOTE | 2017-02-12 18:55 | NUR ---
END OF SHIFT Pt is a 26 yr old male, AA&Ox4. Pt was admitted on 02/08/17 for Opiate/Benzo Dependence and is on 5 day Valium and 5 day Subutex taper as ordered. Medication eric well. Pt has been cooperative with medication regimen and plan of care. Pt attended group sessions. Pt received Clonidine PRN for anxiety, medication was effective. Last COWS score was 2 and CIWA score was 1 at 1600. Pt c/o mild anxiety but is able to cope with anxiety level. Skin is intact, warm and dry to touch. No tremors seen or felt. Pt denies any n/v. Pt denies any pain or discomfort. Pt is on fall and seizure precautions. Bed kept in low position and locked with side rails up x2. Call light is within reach.
[2017-02-12 20:00] VITALS: BP 114/66
--- NOTE | 2017-02-12 20:00 | NUR ---
START OF SHIFT NOTE RECEIVED REPORT FROM DAY SHIFT NURSE. PATIENT IS STABLE, VS WNL. COMPLIANT WITH MEDICATIONS AND TREATMENT PLAN. 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 PATIENT WAS GIVEN PRN CLONIDINE FOR ANXIETY AND SWEATING , EFFECTIVE. LAST COWS 2 AND CIWA 1. RECEIVED PATIENT ALERT AD ORIENTED X 4. RESPIRATION EVEN AND UNLABORED. PATIENT REPORTS ANXIETY, SWEATING , STUFFY NOSE, NO N/V AND NO C/O PAIN AT THIS TIME. ON FALL/SEIZURE PRECAUTION. SAFETY MEASURES IN PLACE. CALL LIGHT IN REACH. WILL CONTINUE TO MONITOR.
[2017-02-13] VITALS: BP 109/59
--- NOTE | 2017-02-13 04:00 | NUR ---
COWS/CIWA DEFERRED PATIENT ASLEEP . COWS CIWA DEFERRED. REFUSE VS. RESPIRATION EVEN AND UNLABORED. SAFETY MEASURES IN PLACE. CALL LIGHT IN REACH. WILL CONTINUE TO MONITOR,.
--- NOTE | 2017-02-13 07:17 | NUR ---
END OF SHIFT NOTE PATIENT COMPLIANT WITH MEDICATIONS AND TREATMENT PLAN. 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 PATIENT DID NOT REQUIRE ANY PRN MEDICATION. PATIENT DENIES ANY PAIN. PATIENT IS EFFECTIVE IN CONTROLLING HIS WITHDRAWAL SYMPTOMS. ON FALL/SEIZURE PRECAUTION. SAFETY MEASURES IN PLACE. CALL LIGHT IN REACH. WILL CONTINUE TO MONITOR. SLEPT 5 HOURS. FLUID INTAKE 1,355 ML. VOIDED X 2. NO BM. LAST COWS 2 AND CIWA 2.
--- NOTE | 2017-02-13 07:30 | NUR ---
START OF SHIFT Pt is a 26 yr old male, AA&Ox4. Pt was admitted on 02/08/17 for Opiate/Benzo Dependence and is on 5 day Valium and 5 day Subutex taper as ordered. Medication eric well. Received report from aircraft quality control inspector nurse. No PRN's were given during the night. Pt slept for 5 hrs. Last COWS score was 2 and CIWA score was 2 at 0000. Pt denies any anxiety or agitation at this time. Skin is intact, warm and dry to touch. No tremors seen or felt. Pt denies any n/v. Pt is on fall and seizure precautions. Bed kept in low position and locked with side rails up x2. Call light is within reach. Will continue to monitor.
[2017-02-13 08:00] VITALS: BP 120/60
[2017-02-13] MEDS: BUPRENORPHINE HCL 2 MG TAB.SUBL SL SCH ×2 (08:49→21:45)
[2017-02-13] MEDS: GABAPENTIN 300 MG CAPSULE PO SCH ×3 (08:49→21:45)
[2017-02-13] MEDS: DIAZEPAM 5 MG TABLET PO SCH ×2 (08:49→21:45)
[2017-02-13 12:00] VITALS: BP 98/65
--- NOTE | 2017-02-13 12:10 | NUR ---
Therapist prompted client about group times. Client stated he will attend all groups today.
[2017-02-13] MEDS: CLONIDINE HCL 0.1 MG TABLET PO PRN (15:13)
--- NOTE | 2017-02-13 15:14 | NUR ---
PRN GIVEN Pt c/o increase anxiety. Clonidine 0.1mg PO PRN was given. medication eric well. Encouraged increase fluid intake. Will continue to monitor.
[2017-02-13 16:00] VITALS: BP 98/56
--- NOTE | 2017-02-13 16:14 | NUR ---
PRN RE-ASSESSMENT Clonidine PRN was effective. Pt is c/o mild anxiety and is able to cope with anxiety level. Will continue to monitor.
--- NOTE | 2017-02-13 19:00 | NUR ---
END OF SHIFT Pt is a 26 yr old male, AA&Ox4. Pt was admitted on 02/08/17 for Opiate/Benzo Dependence and is on 5 day Valium and 5 day Subutex taper as ordered. Medication eric well. Pt has been cooperative with medication regimen and plan of care. Pt attended group sessions. Pt received Clonidine PRN for anxiety, medication was effective. Last COWS score was 1 and CIWA score was 1 at 1600. Pt denies any anxiety or agitation at this time. Skin is intact, warm and dry to touch. No tremors seen or felt. Pt denies any n/v. Pt denies any pain or discomfort. Pt is on fall and seizure precautions. Bed kept in low position and locked with side rails up x2. Call light is within reach.
[2017-02-13 20:00] VITALS: BP 105/79
--- NOTE | 2017-02-13 20:00 | NUR ---
Start of Shift Notes Received a 26 yr old male, AA&Ox4. Px was admitted on 02/08/17 for Opiate/Benzo Dependence and is on 5 day Valium and 5 day Subutex taper as ordered. During the rounds at 1999, No complaints made. COWS 1, CIWA 1. Px is on fall and seizure precautions. Bed kept in low position and locked with side rails up x2. Call light is within reach. We'll continue to monitor.
--- NOTE | 2017-02-14 | NUR ---
VS refused Px refused VS taking at 0000 and 0400. Respirations are even and unlabored. We'll continue to monitor.
--- NOTE | 2017-02-14 04:00 | NUR ---
COWS and CIWA deferred COWS and CIWA deferred due to the px is sleeping, to assess if the px is awake per doctor's order. Respirations are even and unlabored. We'll continue to monitor.
--- NOTE | 2017-02-14 07:14 | NUR ---
End of Shift Notes 26 yr old male, AA&Ox4. Px was admitted on 02/08/17 for Opiate/Benzo Dependence and is on 5 day Valium and 5 day Subutex taper as ordered. During the shift, No complaints made. Last COWS 1 , CIWA 1. Oral intake 1,800 ml, voided 4x, no BM. Slept for 5 hrs. Px is on fall and seizure precautions. Bed kept in low position and locked with side rails up x2. Call light is within reach. We'll continue to monitor.
--- NOTE | 2017-02-14 07:54 | NUR ---
START OF SHIFT: RECEIVED PT A/O X 4. HE REPORTS SLEEPING WELL LAST NIGHT. HE C/O MILD BODY ACHES AND ANXIETY AND STATES DETOX MEDS ARE EFFECTIVE.VALIUM/SUBUTEX TAPER IN PROGRESS. COWS 1 CIWA 1. ENCOURAGED GROUP ATTENDANCE TO IMPROVE COPING SKILLS AND PREVENT RELAPSE. WILL CONTINUE TO MONITOR AND OFFER SUPPORT.
[2017-02-14 08:00] VITALS: BP 107/71
[2017-02-14] MEDS ORDERED: BUPRENORPHINE HCL 2 MG TAB.SUBL SL SCH (09:00)
[2017-02-14] MEDS ORDERED: DIAZEPAM 5 MG TABLET PO SCH (09:00)
[2017-02-14] MEDS: GABAPENTIN 300 MG CAPSULE PO SCH ×3 (09:01→22:07)
--- NOTE | 2017-02-14 10:06 | NUR ---
Therapist prompted client about group times. Client plans to attend all groups today.
[2017-02-14] MEDS: CLONIDINE HCL 0.1 MG TABLET PO PRN (10:11)
--- NOTE | 2017-02-14 10:20 | NUR ---
PRN CLONIDINE GIVEN FOR REPORTED SWEATS AND CHILLS. WILL MONITOR EFFECTIVENESS.
--- NOTE | 2017-02-14 11:20 | NUR ---
PRN CLONIDINE EFFECTIVE. PT STATES HE FEELS LESS SWEATY AND CHILLED.
[2017-02-14 12:00] VITALS: BP 119/62
[2017-02-14] MEDS ORDERED: DICY20TA28 PO (14:27)
[2017-02-14] MEDS ORDERED: GABA-534 PO (14:27)
[2017-02-14] MEDS ORDERED: TRAZ-144 PO (14:27)
[2017-02-14] MEDS ORDERED: IBUP-1955 PO (14:27)
[2017-02-14] MEDS ORDERED: METH-406 PO (14:27)
[2017-02-14 16:00] VITALS: BP 104/57
--- NOTE | 2017-02-14 18:46 | NUR ---
END OF SHIFT: PT COMPLETED TAPERS THIS AM. LAST COWS 2 CIWA 1. DISCHARGE PLANNING IN PROGRESS FOR 02/15. PT STATES HE FEELS MOTIVATED TOWARD RECOVERY PROCESS. HE IS COMPLIANT WITH GROUPS AND ACTIVITIES AND INTERACTS WITH PEERS. WILL PASS SHIFT REPORT TO ONCOMING NIGHT NURSE.
[2017-02-14 20:00] VITALS: BP 110/63
--- NOTE | 2017-02-14 20:00 | NUR ---
Start of Shift Notes Received a 26 yr old male, AA&Ox4. Px was admitted on 02/08/17 for Opiate/Benzo Dependence and is on 5 day Valium and 5 day Subutex taper as ordered. To be D/C tomorrow, 02/15/2017. During the rounds at 2000, No complaints made. COWS 1, CIWA 1. Px is on fall and seizure precautions. Bed kept in low position and locked with side rails up x2. Call light is within reach. We'll continue to monitor.
--- NOTE | 2017-02-15 00:50 | NUR ---
PRN Clonidine Px requested for Clonidine for his anxiety. Clonidine 0.1 mg/tab, 1 tab given PO as PRN med. We'll continue to monitor.
[2017-02-15] MEDS: CLONIDINE HCL 0.1 MG TABLET PO PRN (00:53)
[2017-02-15 04:00] VITALS: BP 106/64
--- NOTE | 2017-02-15 07:31 | NUR ---
End of Shift Notes Received a 26 yr old male, AA&Ox4. Px was admitted on 02/08/17 for Opiate/Benzo Dependence and is on 5 day Valium and 5 day Subutex taper as ordered. To be D/C tomorrow 02/15/2017. During the rounds at 2000, No complaints made. At around 1 am Sofi requested for Clonidine for his anxiety. Clonidine 0.1 mg/tab, 1 tab given PO as PRN med. Oral intake of 2 L, voided 4x, BM 1x. Slept for 2 hrs. Last COWS 1, CIWA 1. Bed kept in low position and locked with side rails up x2. Call light is within reach. We'll continue to monitor.
[2017-02-15 08:00] VITALS: BP 91/57
--- NOTE | 2017-02-15 08:00 | NUR ---
START OF SHIFT NOTE 26 year old male, admitted on 02/08/17 for Oxycodone, Xanax dependence and medical detox. History of withdrawal induced seizure. On fall and seizure precaution. Allergy to shell fish. Completed 5 day Valium and 5 day Subutex tapers. Received report from night RN. Pt was given Clonidine PRN x 1 by night RN. Slept 2 hours. At 0400, COWS 1 and CIWA 1. 0800 nursing rounds, pt sleeping but easily awakens to verbal. Oriented x 4. Bed in low position and locked, side rails up x 2, call chan within reach. COWS 1 and CIWA 0. RN to complete discharge paper work and continue to monitor. AM medications will be administered.
[2017-02-15] MEDS: GABAPENTIN 300 MG CAPSULE PO SCH (08:03)
--- NOTE | 2017-02-15 08:07 | NUR ---
PRN MEDIATION ADMINISTRATION Pt reporting stomach cramps. Given Bentyl PRN. Will reassess.
--- NOTE | 2017-02-15 09:07 | NUR ---
PRN MEDICATION REASSESSMENT Pt reporting stomach cramps resolved after receiving Bentyl PRN at 0807.
--- NOTE | 2017-02-15 09:40 | NUR ---
DISCHARGE NOTE Pt is in stable condition, vitals at 0800 were BP 91/57, pulse 61, RR 16, O2 sat 100 percent, 98.2. Skin intact, denies suicidal or homicidal ideations, all discharge paper work signed and dated. Pt was discharged from [facility] on 02/15/17 at 0940. Pt left the building with all of his belongings and prescriptions. notified.
== END 2017-02-15 09:40 | DRG 895 ==
LOC: SRC 20:01
PROVIDERS: ADMIT Internal Medicine; ATTEND Internal Medicine
PROC: HZ2ZZZZ Detoxification Services for Substance Abuse Treatment (ICD-10-PCS; principal; 2017-02-08)
PROC: HZ31ZZZ Individual Counseling for Substance Abuse Treatment, Behavioral (ICD-10-PCS; 2017-02-09)
PROC: HZ41ZZZ Group Counseling for Substance Abuse Treatment, Behavioral (ICD-10-PCS; 2017-02-09)
DX: F13.232 Sedative, hypnotic or anxiolytic dependence with withdrawal with perceptual disturbance (principal); F39 Unspecified mood [affective] disorder; D64.9 Anemia, unspecified; E86.0 Dehydration; F17.220 Nicotine dependence, chewing tobacco, uncomplicated; F11.23 Opioid dependence with withdrawal; F12.90 Cannabis use, unspecified, uncomplicated; F14.10 Cocaine abuse, uncomplicated; R79.89 Other specified abnormal findings of blood chemistry; G47.00 Insomnia, unspecified; F19.10 Other psychoactive substance abuse, uncomplicated; J02.9 Acute pharyngitis, unspecified; F41.9 Anxiety disorder, unspecified; E16.2 Hypoglycemia, unspecified
CPT/HCPCS: 36415; 70030-TC; 80307; 80346; 80349; 80361; 83735; 85025; 86403; 86592; 86705; 86803; 87070; 87340; 87400; 87806; G0480